=== PATIENT | female | born 1970 | race Caucasian/White ===

== ENCOUNTER 2019-03-07 05:38 | Day surgery (SDC) | payer OTHER ==
[2019-03-06 15:44] LABS: BASOPHILS # (AUTO) 0.1 X10'3 (0-0.2); EOSINOPHILS # (AUTO) 0.1 X10'3 (0-0.9); EOSINOPHILS % (AUTO) 1.1 % (0-6); LYMPHOCYTES # (AUTO) 2.1 X10'3 (1.1-4.8); LYMPHOCYTES % (AUTO) 32.3 % (21-51); MEAN CORPUSCULAR HEMOGLOBIN 29.6 PG (27.0-31.0); MEAN CORPUSCULAR HGB CONC 33.4 g/dL (33.0-36.5); MEAN CORPUSCULAR VOLUME 88.6 FL (78-98); MEAN PLATELET VOLUME 7.6 FL (7.4-10.4); MONOCYTES # (AUTO) 0.5 X10'3 (0-0.9); MONOCYTES % (AUTO) 8.2 % (2-12); NEUTROPHILS # (AUTO) 3.8 X10'3 (1.8-7.7); NEUTROPHILS % (AUTO) 57.4 % (42-75); PRE OP HEMATOCRIT 38.3 % (35.0-45.0); PRE OP HEMOGLOBIN 12.8 g/dL (12.0-16.0); PRE OP PLATELET COUNT 333 X10'3 (140-440); RED BLOOD COUNT 4.32 X10'6 (4.20-5.60); RED CELL DISTRIBUTION WIDTH 13.3 % (11.5-14.5)
[2019-03-06 15:45] LABS: CLARITY,URINE CLEAR (Clear); COLOR,URINE YELLOW (Yellow); GLUCOSE, URINE NEGATIVE (Neg); KETONES,URINE NEGATIVE (Neg); LEUKOCYTE ESTERASE ,URINE NEGATIVE (Neg); NITRITES, URINE NEGATIVE (Neg); OCCULT BLOOD,URINE SMALL (Neg); PH,URINE 7.5 (4.8-8.0); PROTEIN,URINE NEGATIVE (Neg); UROBILINOGEN,URINE 0.2 E.U/dL (0.2-1.0)
[2019-03-06 15:48] LABS: UA COLLECTION TYPE CLN CATCH MIDSTREAM
[2019-03-06 15:53] LABS: BACTERIA,URINE NONE SEEN /HPF (Neg); MUCUS STRANDS NONE SEEN /LPF (Neg); SQUAMOUS EPITHELIAL CELL,UR FEW /LPF (FEW); WBC,URINE NONE SEEN /HPF (0-4)
[2019-03-06 16:00] LABS: PRE OP PARTIAL THROMB. TIME 23 SECONDS (22-32); PRE OP PROTIME 9.7 SECONDS (9.0-12.0)
[2019-03-06 16:03] LABS: PRE OP INR < 0.9 INR
[2019-03-06 16:05] LABS: ALBUMIN 3.7 G/DL (3.4-5.0); ALBUMIN/GLOBULIN RATIO 0.8 (1.1-1.5); ALKALINE PHOSPHATASE 41 IU/L (46-116); BLOOD UREA NITROGEN 8 MG/DL (7-18); BUN/CREATININE RATIO 12.5 (6.6-38.0); CALCIUM 8.9 MG/DL (8.5-10.1); CHLORIDE 103 MMOL/L (99-107); CREATININE 0.64 MG/DL (0.40-0.90); PRE OP ALT 20 U/L (30-65); PRE OP ANION GAP 10 (8-16); PRE OP AST 15 U/L (10-37); PRE OP BILIRUB, TOTAL 0.2 MG/DL (0.0-1.0); PRE OP GLUCOSE 101 MG/DL (70-104); PRE OP POTASSIUM 3.6 MMOL/L (3.4-5.1); PRE OP SODIUM 140 MMOL/L (135-145); TOTAL CARBON DIOXIDE 26.6 MMOL/L (24-32); TOTAL PROTEIN 8.2 G/DL (6.4-8.2); eGFR > 90 ML/MIN
[2019-03-06 16:23] LABS: HCG SERUM QL NEGATIVE
[~2019-03-07] VITALS: Ht 152.4 cm; Wt 68.0 kg
[2019-03-07] VITALS (11 sets, daily range): BP systolic 130–160; BP diastolic 75–100
[~2019-03-07 05:38] MED LIST: NO HOME MEDS; ceFOXitin 2 GM ADDvantage bag 100 ML IV ONE; famotidine 20mg tablet PO ONE; ringers solution, lacted 1,000 ML IV SCH; scopolamine 1.5mg patch.TD72 TD ONE
[2019-03-07] MEDS ORDERED: LIDOcaine 1% (10mg/ml) 2ml vial ONE (06:28)
[2019-03-07] MEDS ORDERED: BUPIVAcaine/PF 2.5 mg/ml (0.25%) 30ml vial ONE (06:40)
[2019-03-07] MEDS ORDERED: midazolam 2 mg/2 ml injection ONE (07:18)
[2019-03-07] MEDS ORDERED: fentaNYL /PF 50mcg/ml 5ml ampule ONE (07:18)
[2019-03-07] MEDS ORDERED: LIDOcaine 2% (20mg/ml) 5ml vial ONE (07:21)
[2019-03-07] MEDS ORDERED: propofol inj 20 ML IV ONE (07:21)
[2019-03-07] MEDS ORDERED: rocuronium 10mg/ml inj IV ONE (07:21)
[2019-03-07] MEDS ORDERED: sevoflurane 250ml liquid IH ONE (07:22)
[2019-03-07] MEDS ORDERED: ringers solution, lacted 1,000 ML IV SCH (07:27)
[2019-03-07] MEDS ORDERED: morphine 4 MG/ML inj SYRINge IV PRN ×2 (07:30)
[2019-03-07] MEDS ORDERED: meperidine/PF 25mg/ml syringe IV PRN ×3 (07:30)
[2019-03-07] MEDS ORDERED: proCHLORperazine 10 MG/2 ml inj IV PRN (07:30)
[2019-03-07] MEDS ORDERED: ondansetron/PF 4mg/2ml inj IV PRN (07:30)
[2019-03-07] MEDS ORDERED: meperidine/PF 50mg/ml syringe ONE (10:35)
--- NOTE | 2019-03-07 10:42 | NUR ---
Received from OR via [facility], accompanied by Anesthesiologist DR TOLEDO and report given by Anesthesiologist. PT SEDATED W/ETT, SIZE 7 22 AT LIP, NO S/S OF DISTRESS/DISCOMFORT, VSS. ABDOMEN W/3 LAP SITES W/DERMABOND CDI, JAKI PAD IN PLACE CDI. Addendum: 03/07/19 at 1102 by Dianna Tinoco RN Amended: Links added.
[2019-03-07] MEDS ORDERED: glycopyrrolate 0.2mg/ml inj ONE (10:58)
[2019-03-07] MEDS ORDERED: neostigmine methylsulfate 1 MG/ML 10ml vial ONE (10:58)
[2019-03-07] MEDS ORDERED: ondansetron/PF 4mg/2ml inj ONE (10:58)
[2019-03-07] MEDS ORDERED: dexamethasone sod phosphate 4mg/ml inj. ONE (10:58)
[2019-03-07] MEDS ORDERED: acetaminophen 1,000mg/100ml IV 100 ML IV ONE (11:10)
[2019-03-07] MEDS ORDERED: ketorolac trometh. 30mg/ml inj. IV ONE (11:10)
--- NOTE | 2019-03-07 12:00 | NUR ---
[place] [facility] [place] DRESSED AND AWAITING DR ARIAS FOR HER PAIN MEDICATION. Addendum: 03/07/19 at 1242 by Dianna Tinoco RN Amended: Links added.
[2019-03-07] MEDS ORDERED: HYDROcodone/acetaminophen 10/325mg tab PO ONE (12:50)
[2019-03-07] MEDS ORDERED: ondansetron 4mg rapidly disintigrating tab PO ONE (13:00)
--- NOTE | 2019-03-07 13:22 | NUR ---
NORCO AND NELIDA GIVEN FOR PAIN AND PREVENTION OF NAUSEA PT VERY SUSCEPTIBLE TO NAUSEA PRIOR TO D/C PER MD, D/C INSTRUCTIONS GIVEN AND GONE OVER W/PT AND PTS WHOM BOTH VERBALIZE UNDERSTANDING, PT D/CD TO HOME VIA W/C TO PRIVATE VEHICLE W/O INCIDENT. Addendum: 03/07/19 at 1328 by Dianna Tinoco RN Amended: Links added.
== END 2019-03-07 13:22 | disposition home or self-care (01) ==
LOC: PAS 05:38
PROVIDERS: ATTEND Obstetrics & Gynecology
DX: N92.1 Excessive and frequent menstruation with irregular cycle (principal); N85.2 Hypertrophy of uterus; N73.6 Female pelvic peritoneal adhesions (postinfective); I10 Essential (primary) hypertension; Z98.41 Cataract extraction status, right eye; Z98.42 Cataract extraction status, left eye; Z98.890 Other specified postprocedural states; Z88.1 Allergy status to other antibiotic agents; Z79.899 Other long term (current) drug therapy; Z87.891 Personal history of nicotine dependence; Z98.51 Tubal ligation status
CPT/HCPCS: 36415; 58571; 80053; 81001; 82948; 84703; 85025; 85610; 85730; 86885; 86900; 86901; 93005; C1758; J0131; J0694; J1100; J1885; J2001; J2175; J2250; J2405; J2704; J2710; J3010; J3490; J7030; J7120; S2900; A4355; A4618; A7000

== ENCOUNTER → 2023-08-04 | Outpatient (CLI) | payer BC ==
[~2023-08-04] MED LIST changes: -ceFOXitin 2 GM ADDvantage bag 100 ML IV ONE; -famotidine 20mg tablet PO ONE; -ringers solution, lacted 1,000 ML IV SCH; -scopolamine 1.5mg patch.TD72 TD ONE
== END | disposition home or self-care (01) ==
LOC: RAD 08:48
PROVIDERS: ATTEND Urology
DX: N20.0 Calculus of kidney (principal)
CPT/HCPCS: 76770